=== PATIENT | male | born 1995 | race Hispanic/Latino ===

== ENCOUNTER → 2017-06-01 | Day surgery (SDC) | payer OTHER ==
[~2017-06-01] VITALS: Ht 167.6 cm; Wt 68.0 kg
--- NOTE | 2017-06-01 16:26 | Operative Report ---
Operative/Inv Procedure Report Surgery Date: 06/01/17 Name of Procedure: Left arthroscopically-assisted ACL reconstruction with bone-patellar tendon-bone autograft; partial lateral meniscectomy. Pre-Operative Diagnosis: Left ACL tear, medial and lateral meniscus tears Post-Operative Diagnosis: Left ACL tear, lateral meniscus tear Estimated Blood Loss: less than 50ml Surgeon/Manager Department: [facility] HERRERA,Alan Howe MD Anesthesia: laryngeal mask airway, block Implants: Depuy Mitek Profile screws Femur 7x20mm Tibia 9x25mm Drains: None Specimens: None Tourniquet: 120min at 300mmHg Complications: None Condition: Stable Operative Indication: Be Ibanez is a 21-year-old male who sustained a left knee injury after falling as he ran upstairs. The stairs were wet and he slipped with a buckling injury to the left knee. He had immediate pain, swelling, and difficulty with weightbearing. He presented to clinic for evaluation of his left knee injury. He did not have full range of motion but his swelling has improved from the initial injury. X-rays showed no fractures, but an MRI showed a left ACL tear as well as medial meniscus tear and small lateral bucket handle meniscus tear. After discussing the risks benefits and alternatives to surgical intervention, the patient opted to proceed with left knee arthroscopically assisted ACL reconstruction using patellar tendon autograft and medial and lateral meniscus repairs versus meniscectomies. Due to his school schedule, he opted to delay surgery despite our discussion regarding the increased likelihood of being able to fix a meniscus acutely. He did attend physical therapy to regain full motion of the left knee. Operative/Procedure Note Note: Be Ibanez arrived at [facility] on 06/01/2017. He was met in the preoperative holding area where his operative extremity was marked in his medical history was reviewed. He was taken to the operating room and placed supine on the operating room table. A timeout procedure was performed in which the patient, operative extremity, and planned procedure were verified. An SCD was applied to the right lower leg. The patient was induced under general anesthesia and IV Ancef was administered for antibiotic prophylaxis. A nonsterile tourniquet was applied to the left upper thigh, and the left lower extremity was prepped and draped in the usual sterile fashion. The patient's examination under anesthesia showed a positive Christopher's. We opted to then proceed with harvesting of the bonepatellar tendonbone autograft. The left lower extremity was exsanguinated using Esmarch bandage, and the tourniquet raised to 300 mmHg. A medial parapatellar incision was made over the anterior left knee from the inferior pole of patella down to the tibial tubercle. This was taken through skin and subcutaneous layers down to the peritenon. The peritenon was sharply divided and flaps raised both medial and lateral. The edges of patellar tendon were identified. The width of the patellar tendon was measured at 34 mm. The central 11 mm of the tendon were marked. A 15 blade scalpel was used to incise the tendon longitudinally, in line with the fibers. With the knee in 90 of flexion, a small bone block was taken with the tendon using an oscillating saw. This measured approximately 20 mm in length and 10-11 mm in width. The knee was then taken into extension and a similar bone block was taken from the inferior pole of the patella. This bone block was slightly more narrow, but approximately 20 mm in length. The graft was then taken to the back table for preparation. The patellar bone block, which would be used in the femur, measured 20 mm in length by 9.5 mm in diameter. Two #2 Orthocord sutures were placed in the bone block. The tibial bone block measured 200mm in length by 11 mm in diameter. Two #5 FiberWire sutures were placed in this bone block. The intratendinous portion measured 40 mm. A small ossicle consistent with prior Morton Schlatter was noted near the tibial bone block and carefully resected. The graft was wrapped in vancomycine soaked gauze. A diagnostic knee arthroscopy was performed. Camera was introduced into the patellofemoral joint by way of a inferolateral portal. There was no significant wear of the undersurface of the patella or the trochlea. There were no loose bodies noted in either the medial or lateral gutters. With the flexion S shaver was introduced through an inferomedial portal. This was used to debride the anterior fat pad for better visualization. The knee was noted to be ACL deficient with an empty lateral wall sign. ACL remnant was noted to be scarred into the tibial footprint. This was carefully debrided with a shaver. The leg was taken into extension with a valgus load to evaluate the medial compartment. A probe was used to evaluate the meniscus which was found to be in good condition without evidence of tear or instability. As a small cartilage flap noted on the medial femoral condyle just medial to the trochlea. This was carefully debrided down to a stable border. The remaining cartilage of the medial femoral condyle and the medial tibial plateau was in good condition. The leg was then taken into a figure of four position to evaluate the lateral compartment. The posterior body was noted to have 2 longitudinal meniscus tears. These were in the inner portion of the meniscus, consistent with the white white zone. These were therefore not amenable to repair. The remaining meniscal meniscus in the body and anterior horn was in good condition. Using a combination of biters and a shaver, the inner longitudinal tear was carefully debrided. The probe was again reintroduced to evaluate the remaining lateral meniscus. A second longitudinal tear was appreciated. This did not extend into the periphery and meniscus remained intact across the popliteal hiatus. This was carefully debrided using a combination of biters and the shaver. The tear did extend close to the root of the lateral meniscus, however this remained intact and sufficient when probed. He was tear noted in the body of the meniscus, however this was carefully debrided and then rasped. No additional tissue was removed as this was located at the level of the popliteal hiatus. The cartilage of the lateral femoral condyle and lateral tibial plateau was in good condition. He can back into 90. The remaining tissue on the medial aspect of the lateral femoral condyle was debrided using the shaver. An accessory medial portal was created after localization with a spinal needle. This allowed for placement of a Beath pin, which was passed from the accessory medial portal to the medial aspect of the lateral femoral condyle. The pin was positioned at the ACL footprint on the femur. The knee was then taken into hyperflexion and the pin driven from medial to lateral. It exited the lateral femoral in the midportion of the IT band. A skid was used to protect the medial femoral condyle, and a 9.5 mm reamer was taken into the knee. This was placed over the Beath pin and a tunnel was drilled to a depth of approximately 25 mm. The reamer was removed and any excess bone debris was evacuated using a shaver. A passing stitch was placed through the eye of the Beath pin which was then pulled from medial to lateral. The leg was taken back to 90. A tibial guide set at 50 was placed in the inferomedial portal. This was positioned with the guide in line with the anterior horn of the lateral meniscus. The pin was then driven through the tibia from distal to proximal using the guide. Once the pin was positioned, an 11 mm reamer was taken through the tibia into the knee. A shaver was used to again remove any bone or soft tissue debris. The passing stitch was then pulled through the knee and out the tibial tunnel. The graft was taken from the back table up to the knee. The sutures of the patellar bone block (femoral bone block) are passed through the passing stitch and pulled out the lateral aspect of the femur. The patellar bone block was carefully pulled through the tibial tunnel into the knee and into the femoral tunnel. This was verified as utilization using the arthroscope. We'll bone block was pushed into the tibial tunnel. Once the patellar bone block was fully seated in the femoral tunnel, the knee was taken into hyperflexion. A nitinol wire was placed through the accessory medial portal between the bone block in the wall of the femoral tunnel. Over the wire, a 7 x 20 mm Profile screw was placed with excellent fixation. Tension was placed on the graft through the tibial tunnel and it was carefully taken through a range of motion under direct visualization using arthroscope. The femoral graft was firmly affixed and did not impinge. The arthroscope was removed from the knee and any excess fluid evacuated. The knee was taken into full extension and fully cycled with tension on the tibial sutures. With the knee in full extension, a nitinol wire was placed between the bone block and tibial wall. A 9 x 25 mm Profile screw was placed over the Nitinol wire providing interference fixation with the bone plug. This provided excellent purchase. Once this screw was placed, Christopher's exam was performed of the left knee which was found to be stable. The sutures are removed from the femur and tibial bone blocks. The anterior knee was copiously irrigated with normal saline with bacitracin. Remaining bone graft from preparation of the graft was placed in the patellar defect. The patellar tendon was reapproximated with interrupted 0 Vicryl sutures. The paratenon was then closed over the tendon. The incision was closed in layers using 0 Vicryl, 2-0 Vicryl, and running 3-0 Prolene suture. The accessory medial portal was closed using interrupted Prolene suture. The medial parapatellar incision was reinforced with Steri-Strips. The wounds were dressed with sterile Xeroform, gauze, ABDs pad, and sterile webril. The left lower leg was wrapped in Darryl bandage from foot to mid thigh. At the conclusion of the procedure the tourniquet was released after 120 minutes. The anesthesia service provided a regional block using ultrasound guidance. The patient was then placed in a hinge knee brace. He was extubated and taken from the operating room to the post anesthesia recovery unit in stable condition.
== END ==
LOC: STS 05-11 07:00
DX: S83.512A Sprain of anterior cruciate ligament of left knee, initial encounter (principal); S83.282A Other tear of lateral meniscus, current injury, left knee, initial encounter; W19.XXXA Unspecified fall, initial encounter
CPT/HCPCS: C9399; J0131; J0690; J1100; J2250; J2405; J3370